=== PATIENT | female | born 1955 | race Caucasian/White ===

== ENCOUNTER 2023-01-26 08:00 | Outpatient (CLI) | payer BC, MEDICARE, OTHER ==
--- NOTE | 2023-01-26 16:19 | XRAY Report ---
PROCEDURE: Knee 3 View LT INDICATIONS: LEFT KNEE PAIN TECHNIQUE: 3 views of the left knee(s) were acquired. COMPARISON: None. FINDINGS: Bones: No fractures or dislocations. No suspicious bony lesions. Mild left knee tricompartmental os teoarthritis with osseous hypertrophy. Soft tissues: No knee joint effusion. No suspicious soft tissue calcifications or masses. IMPRESSION: Mild left knee tricompartmental osteoarthritis. Reviewed by: Soniya Hurtado MD, PhD on 01/26/2023 4:18 PM PDT Approved by: Soniya Hurtado MD, PhD on 01/26/2023 4:18 PM PDT Station ID: [id number]
== END 2023-01-26 23:59 | disposition home or self-care (01) ==
LOC: DI.S 08:00
PROVIDERS: ATTEND Physician Assistant
DX: M17.12 Unilateral primary osteoarthritis, left knee (principal)